=== PATIENT | male | born 1940 | race Two or more races ===

== ENCOUNTER 2017-12-03 11:46 | Inpatient (IN) | payer MEDICARE, BC ==
[~2017-12-03] VITALS: Ht 170.2 cm; Wt 76.7 kg
[2017-12-03] MEDS ORDERED: IV NS 0.9% 1,000 ML BAG IV ONE (12:30)
[2017-12-03 12:50] LABS: BASOPHILS # (AUTO) 0.4 /CMM (0.0-0.2); BASOPHILS % (AUTO) 2.1 % (0.0-2.0); EOSINOPHILS % (AUTO) 0.3 % (0.0-6.0); HEMATOCRIT 41 % (39-51); HEMOGLOBIN 14.4 g/dL (13.5-17.5); LYMPHOCYTES # (AUTO) 1.7 /CMM (0.8-4.8); LYMPHOCYTES % (AUTO) 9.9 % (20.0-44.0); MEAN CORPUSCULAR HEMOGLOBIN 33 PG (26.0-33.0); MEAN CORPUSCULAR HGB CONC 35 g/dl (31.0-36.0); MEAN CORPUSCULAR VOLUME 94 fL (80-96); MONOCYTES # (AUTO) 1.6 /CMM (0.1-1.30); MONOCYTES % (AUTO) 9.2 % (2.0-12.0); NEUTROPHILS # (AUTO) 13.3 /CMM (1.8-8.9); NEUTROPHILS % (AUTO) 78.5 % (43.0-81.0); PLATELET COUNT (AUTO) 355 /CMM (150-450); RDW COEFFICIENT OF VARIATION 13.1 (11.5-15.0); WHITE BLOOD COUNT (AUTO) 17.1 K/uL (4.3-11.0)
[2017-12-03 12:58] LABS: CALCIUM, SERUM 10.5 mg/dL (8.5-10.1); CARBON DIOXIDE 28 mmol/L (21-32); CHLORIDE 104 mmol/L (98-107); GLUCOSE 103 mg/dL (74-106); POTASSIUM 4.4 mmol/L (3.5-5.1); SODIUM SERUM 140 mmol/L (136-145); UREA NITROGEN, BLOOD 45 mg/dL (7-18)
[2017-12-03 13:10] LABS: ALANINE AMINOTRANSFERASE 26 U/L (12-78); ALBUMIN 3.8 g/dL (3.4-5.0); ALCOHOL, BLOOD < 3 mg/dL (0-0); ALKALINE PHOSPHATASE 59 U/L (46-116); ASPARTATE AMINOTRANSFERASE 39 U/L (15-37); BILIRUBIN,DIRECT 0.1 mg/dL (0.0-0.2); BILIRUBIN,TOTAL 0.5 mg/dL (0.2-1.0); TOTAL PROTEIN, SERUM 8.3 g/dL (6.4-8.2)
[2017-12-03] MEDS ORDERED: LORA0.5T PO (13:13)
[2017-12-03] MEDS ORDERED: BACI500P TP (13:13)
[2017-12-03] MEDS ORDERED: CHLO25TA13 PO (13:13)
[2017-12-03] MEDS ORDERED: METF500T6 PO (13:13)
[2017-12-03 13:14] LABS: ACETAMINOPHEN < 10 ug/ml (10-30); SALICYLATE 1.5 mg/dL (2.8-20.0)
[2017-12-03 13:16] LABS: LYMPHOCYTES % (MANUAL) 6 % (16-48); MONOCYTES % (MANUAL) 7 % (0-11.0); NEUTROPHILS % (MANUAL) 87 (42-76)
[2017-12-03 13:48] LABS: APPEARANCE,URINE Clear (CLEAR); BILIRUBIN,URINE SMALL (NEGATIVE); BLOOD, URINE Negative Ery/uL (NEGATIVE); COLOR,URINE Yellow (YELLOW); KETONES,URINE 15 (NEGATIVE); LEUKOCYTE ESTERASE ,URINE Negative (NEGATIVE); NITRITE, URINE Negative (NEGATIVE); PROTEIN,URINE 30 mg/dl (NEGATIVE); UGLUCOSE Negative (NEGATIVE)
[2017-12-03 14:07] LABS: RBC,URINE 0-2 /HPF (0-2)
[2017-12-03 14:08] LABS: BACTERIA,URINE None seen /HPF (None Seen); HYALINE CASTS, URINE Few /LPF (None Seen); SQUAMOUS EPITHELIAL CELL,UR Few /HPF (None Seen)
[2017-12-03] MEDS ORDERED: CEFTRIAXONE 1GM BAG (ER ONLY) 1 GM/50 ML PIGGYBACK IV ONE (14:30)
[2017-12-03] MEDS ORDERED: VANCOMYCIN 1 GM in IV D5W 250 ML IV ONE (14:30)
[2017-12-03] MEDS ORDERED: AZITHROMYCIN 500 MG in IV D5W 250 ML IV ONE (14:30)
[2017-12-03] MEDS ORDERED: CEFTRIAXONE 1GM BAG (ER ONLY) 50 ML IV ONE (14:31)
[2017-12-03] MEDS ORDERED: Z GUARD REMEDY 2 OZ OINT TP PRN (16:00)
[2017-12-03] MEDS ORDERED: MAGNESIUM HYDROXIDE 30 ML UDC PO PRN (16:00)
[2017-12-03] MEDS ORDERED: ZOLPIDEM TARTRATE 5 MG TABLET PO PRN (16:00)
[2017-12-03] MEDS ORDERED: ONDANSETRON HCL/PF 4 MG/2 ML VIAL IVP PRN (16:00)
[2017-12-03] MEDS ORDERED: ACETAMINOPHEN 325 MG TABLET PO PRN (16:00)
[2017-12-03] MEDS ORDERED: IV NS 0.9% 1,000 ML IV ONE (16:00)
[2017-12-03] MEDS ORDERED: MAG HYDROX/AL HYDROX/SIMETH 30 ML UDC PO PRN (16:00)
[2017-12-03] MEDS ORDERED: HYDROCODONE/APAP 5/325MG 1 EACH TABLET PO PRN (16:00)
[2017-12-03] MEDS ORDERED: FEE PK DOSING 1 MIN EA MC ONE (16:11)
[2017-12-03] MEDS: PIPERACILLIN /TAZOBACTAM 2.25 G in IV NS 0.9% 50 ML IV SCH (18:01)
[2017-12-03 20:00] VITALS: BP 149/75
[2017-12-03] MEDS: diphenhydrAMINE HCL 50 MG/ML VIAL IM PRN (21:56)
[2017-12-03] MEDS: LORAZEPAM INJ 2 MG/ML VIAL IM PRN (21:56)
[2017-12-03] MEDS ORDERED: chlorproMAZINE HCL 25 MG TABLET ONE (22:29)
[2017-12-03] MEDS: chlorproMAZINE HCL 25 MG TABLET PO SCH (22:33)
[2017-12-04] MEDS: PIPERACILLIN /TAZOBACTAM 2.25 G in IV NS 0.9% 50 ML IV SCH ×4 (00:56→18:05)
[2017-12-04] MEDS: VANCOMYCIN 500 MG in IV NS 0.9% 100 ML IV SCH ×2 (03:04→15:13)
[2017-12-04] MEDS: chlorproMAZINE HCL 25 MG TABLET PO SCH (04:19)
[2017-12-04 07:20] LABS: BASOPHILS % (AUTO) 0.2 % (0.0-2.0); EOSINOPHILS % (AUTO) 1.5 % (0.0-6.0); HEMATOCRIT 36 % (39-51); HEMOGLOBIN 12.4 g/dL (13.5-17.5); LYMPHOCYTES # (AUTO) 1.5 /CMM (0.8-4.8); LYMPHOCYTES % (AUTO) 14.2 % (20.0-44.0); MEAN CORPUSCULAR HEMOGLOBIN 33 PG (26.0-33.0); MEAN CORPUSCULAR HGB CONC 34 g/dl (31.0-36.0); MEAN CORPUSCULAR VOLUME 97 fL (80-96); MONOCYTES # (AUTO) 1.1 /CMM (0.1-1.30); MONOCYTES % (AUTO) 10.1 % (2.0-12.0); NEUTROPHILS # (AUTO) 7.9 /CMM (1.8-8.9); PLATELET COUNT (AUTO) 259 /CMM (150-450); RDW COEFFICIENT OF VARIATION 13.7 (11.5-15.0); RED BLOOD CELL COUNT(AUTO) 3.73 MIL/uL (4.5-6.0); WHITE BLOOD COUNT (AUTO) 10.7 K/uL (4.3-11.0)
[2017-12-04 07:27] LABS: CHOLESTEROL 159 mg/dL (<200); HDL CHOLESTEROL 30 mg/dL (40-60); LDL 109 mg/dL (0-99); TRIGLYCERIDES 115 mg/dL (30-150)
[2017-12-04 07:38] LABS: CALCIUM, SERUM 9.1 mg/dL (8.5-10.1); CARBON DIOXIDE 28 mmol/L (21-32); CHLORIDE 107 mmol/L (98-107); CREATININE 1.3 mg/dL (0.6-1.3); GLUCOSE 115 mg/dL (74-106); MAGNESIUM 1.9 mg/dL (1.8-2.4); PHOSPHORUS 3.7 mg/dL (2.5-4.9); POTASSIUM 3.5 mmol/L (3.5-5.1); SODIUM SERUM 142 mmol/L (136-145); UREA NITROGEN, BLOOD 32 mg/dL (7-18)
[2017-12-04 08:00] VITALS: BP 134/69
[2017-12-04] MEDS: BACITRACIN ZINC OINT PACKET 1 EA PACKET TP SCH (09:10)
[2017-12-04] MEDS: METFORMIN 500 MG TABLET PO SCH ×2 (10:56→17:54)
[2017-12-04] MEDS: diphenhydrAMINE HCL 50 MG/ML VIAL IM PRN (12:18)
[2017-12-04] MEDS: LORAZEPAM INJ 2 MG/ML VIAL IM PRN (12:18)
[2017-12-04] MEDS: LORAZEPAM 0.5 MG TABLET PO SCH (15:12)
[2017-12-04] MEDS: ZIPRASIDONE MESYLATE 20 MG/VIAL VIAL IM SCH (18:55)
[2017-12-04 20:00] VITALS: BP 140/88
[2017-12-05] MEDS: PIPERACILLIN /TAZOBACTAM 2.25 G in IV NS 0.9% 50 ML IV SCH ×5 (00:22→23:45)
[2017-12-05] MEDS: VANCOMYCIN 500 MG in IV NS 0.9% 100 ML IV SCH ×2 (04:33→14:56)
[2017-12-05] MEDS: LORAZEPAM INJ 2 MG/ML VIAL IM PRN (05:33)
[2017-12-05] MEDS: diphenhydrAMINE HCL 50 MG/ML VIAL IM PRN (05:33)
[2017-12-05 06:28] LABS: BASOPHILS % (AUTO) 0.3 % (0.0-2.0); HEMATOCRIT 38 % (39-51); HEMOGLOBIN 12.8 g/dL (13.5-17.5); LYMPHOCYTES % (AUTO) 11.2 % (20.0-44.0); MEAN CORPUSCULAR HEMOGLOBIN 33 PG (26.0-33.0); MEAN CORPUSCULAR HGB CONC 34 g/dl (31.0-36.0); MEAN CORPUSCULAR VOLUME 97 fL (80-96); MONOCYTES # (AUTO) 0.7 /CMM (0.1-1.30); MONOCYTES % (AUTO) 8.2 % (2.0-12.0); NEUTROPHILS # (AUTO) 6.8 /CMM (1.8-8.9); NEUTROPHILS % (AUTO) 78.3 % (43.0-81.0); PLATELET COUNT (AUTO) 282 /CMM (150-450); RDW COEFFICIENT OF VARIATION 13.4 (11.5-15.0); RED BLOOD CELL COUNT(AUTO) 3.93 MIL/uL (4.5-6.0); WHITE BLOOD COUNT (AUTO) 8.6 K/uL (4.3-11.0)
[2017-12-05 07:05] LABS: CALCIUM, SERUM 8.8 mg/dL (8.5-10.1); CARBON DIOXIDE 29 mmol/L (21-32); CHLORIDE 105 mmol/L (98-107); CREATININE 1.3 mg/dL (0.6-1.3); GLUCOSE 146 mg/dL (74-106); POTASSIUM 3.5 mmol/L (3.5-5.1); SODIUM SERUM 140 mmol/L (136-145); UREA NITROGEN, BLOOD 23 mg/dL (7-18)
[2017-12-05] MEDS: METFORMIN 500 MG TABLET PO SCH ×2 (08:24→17:06)
[2017-12-05] MEDS: BACITRACIN ZINC OINT PACKET 1 EA PACKET TP SCH (08:24)
[2017-12-05] MEDS: ZIPRASIDONE MESYLATE 20 MG/VIAL VIAL IM SCH ×2 (09:30→17:06)
[2017-12-05] MEDS ORDERED: IV NS 0.9% 1,000 ML BAG IV PRN (10:00)
[2017-12-05] MEDS: IV NS 0.9% 1,000 ML IV PRN (12:13)
[2017-12-05] MEDS: LACTOBACILLUS RHAMNOSUS GG 1 EACH CAP.SPRINK PO SCH (17:06)
[2017-12-05 20:00] VITALS: BP 153/83
[2017-12-06] MEDS ORDERED: VANCOMYCIN 500 MG VIAL ONE (02:58)
[2017-12-06] MEDS: VANCOMYCIN 0.75 GM in IV D5W 250 ML IV SCH ×2 (03:05→15:18)
[2017-12-06] MEDS: IV NS 0.9% 1,000 ML IV PRN ×2 (05:32→16:32)
[2017-12-06] MEDS: PIPERACILLIN /TAZOBACTAM 2.25 G in IV NS 0.9% 50 ML IV SCH ×4 (05:32→23:39)
[2017-12-06 07:08] LABS: BASOPHILS % (AUTO) 0.2 % (0.0-2.0); EOSINOPHILS % (AUTO) 1.5 % (0.0-6.0); HEMATOCRIT 38 % (39-51); HEMOGLOBIN 13.3 g/dL (13.5-17.5); LYMPHOCYTES # (AUTO) 0.9 /CMM (0.8-4.8); LYMPHOCYTES % (AUTO) 10.3 % (20.0-44.0); MEAN CORPUSCULAR HEMOGLOBIN 33 PG (26.0-33.0); MEAN CORPUSCULAR HGB CONC 35 g/dl (31.0-36.0); MEAN CORPUSCULAR VOLUME 96 fL (80-96); MONOCYTES # (AUTO) 0.7 /CMM (0.1-1.30); NEUTROPHILS # (AUTO) 7.3 /CMM (1.8-8.9); PLATELET COUNT (AUTO) 269 /CMM (150-450); RDW COEFFICIENT OF VARIATION 13.6 (11.5-15.0); RED BLOOD CELL COUNT(AUTO) 3.99 MIL/uL (4.5-6.0); WHITE BLOOD COUNT (AUTO) 9.1 K/uL (4.3-11.0)
[2017-12-06 07:22] LABS: CALCIUM, SERUM 8.4 mg/dL (8.5-10.1); CARBON DIOXIDE 24 mmol/L (21-32); CHLORIDE 107 mmol/L (98-107); GLUCOSE 145 mg/dL (74-106); POTASSIUM 3.5 mmol/L (3.5-5.1); SODIUM SERUM 140 mmol/L (136-145); UREA NITROGEN, BLOOD 19 mg/dL (7-18)
[2017-12-06 08:00] VITALS: BP_SYST 120; BP_SYST 189; BP_DIAS 63; BP_DIAS 92
[2017-12-06 09:00] VITALS: BP 120/63
[2017-12-06] MEDS: LACTOBACILLUS RHAMNOSUS GG 1 EACH CAP.SPRINK PO SCH ×2 (09:00→16:31)
[2017-12-06] MEDS: ZIPRASIDONE 20 MG CAPSULE PO SCH ×2 (09:00→16:31)
[2017-12-06] MEDS: METFORMIN 500 MG TABLET PO SCH ×2 (09:00→16:31)
[2017-12-06] MEDS ORDERED: ZIPRASIDONE MESYLATE 20 MG/VIAL VIAL IM PRN (09:00)
[2017-12-06] MEDS: BACITRACIN ZINC OINT PACKET 1 EA PACKET TP SCH (09:03)
[2017-12-06 16:00] VITALS: BP 143/69
[2017-12-06] MEDS: LORAZEPAM INJ 2 MG/ML VIAL IM PRN (18:25)
[2017-12-06 20:00] VITALS: BP 116/62
[2017-12-07] MEDS: VANCOMYCIN 0.75 GM in IV D5W 250 ML IV SCH (02:04)
[2017-12-07] MEDS: PIPERACILLIN /TAZOBACTAM 2.25 G in IV NS 0.9% 50 ML IV SCH (05:00)
[2017-12-07] MEDS: IV NS 0.9% 1,000 ML IV PRN (05:01)
[2017-12-07 07:11] LABS: CALCIUM, SERUM 8.5 mg/dL (8.5-10.1); CARBON DIOXIDE 24 mmol/L (21-32); CHLORIDE 106 mmol/L (98-107); CREATININE 1.1 mg/dL (0.6-1.3); GLUCOSE 143 mg/dL (74-106); POTASSIUM 3.4 mmol/L (3.5-5.1); SODIUM SERUM 139 mmol/L (136-145); UREA NITROGEN, BLOOD 17 mg/dL (7-18)
[2017-12-07 08:00] VITALS: BP 146/66
[2017-12-07] MEDS: LACTOBACILLUS RHAMNOSUS GG 1 EACH CAP.SPRINK PO SCH ×2 (08:21→16:25)
[2017-12-07] MEDS: ZIPRASIDONE 20 MG CAPSULE PO SCH ×2 (08:21→16:25)
[2017-12-07] MEDS: METFORMIN 500 MG TABLET PO SCH ×2 (08:21→16:25)
[2017-12-07] MEDS: BACITRACIN ZINC OINT PACKET 1 EA PACKET TP SCH (08:22)
[2017-12-07] MEDS ORDERED: POTASSIUM CHLORIDE 20 MEQ TAB.PRT.SR PO SCH (09:30)
[2017-12-07 16:00] VITALS: BP 139/68
[2017-12-07] MEDS: LORAZEPAM 0.5 MG TABLET PO SCH (16:25)
== END 2017-12-07 16:30 | DRG 871 ==
LOC: ER 11:47 → MED 15:45 → TELE 12-04 00:01 → MED 12-05 10:09
PROVIDERS: ADMIT Family Medicine; ATTEND Family Medicine
DX: A41.9 Sepsis, unspecified organism (principal); N17.0 Acute kidney failure with tubular necrosis; J69.0 Pneumonitis due to inhalation of food and vomit; G93.41 Metabolic encephalopathy; E87.2 Acidosis; N39.0 Urinary tract infection, site not specified; F03.91 Unspecified dementia, unspecified severity, with behavioral disturbance; F29 Unspecified psychosis not due to a substance or known physiological condition; E11.22 Type 2 diabetes mellitus with diabetic chronic kidney disease; I12.9 Hypertensive chronic kidney disease with stage 1 through stage 4 chronic kidney disease, or unspecified chronic kidney disease; N18.9 Chronic kidney disease, unspecified; E83.52 Hypercalcemia; E86.9 Volume depletion, unspecified; Z79.84 Long term (current) use of oral hypoglycemic drugs; E86.0 Dehydration; R65.20 Severe sepsis without septic shock
CPT/HCPCS: 36415; 71045-TC; 80048-TC; 80061-TC; 80076-TC; 80164-TC; 80202-TC; 80305; 81000-TC; 82962-TC; 83605-TC; 83735-TC; 84100-TC; 85025-TC; 87040-TC; 87081-TC; 87086-TC; 92611-TC; A4216; A4606; G0480; J0456; J0696; J1200; J2060; J2543; J3370; J3486; J7030; J7050; J7060; Q0161; Z7610

== ENCOUNTER 2017-12-07 17:35 | Inpatient (IN) | payer MEDICARE, BC ==
[~2017-12-07] VITALS: Ht 172.7 cm; Wt 73.5 kg
[~2017-12-07 17:35] MED LIST: BACI500P TP; CHLO25TA13 PO; LORA0.5T PO; METF500T6 PO
[2017-12-07] MEDS ORDERED: ZOLPIDEM TARTRATE 5 MG TABLET PO PRN (18:00)
[2017-12-07] MEDS ORDERED: MAGNESIUM HYDROXIDE 30 ML UDC PO PRN (18:00)
[2017-12-07] MEDS ORDERED: MAG HYDROX/AL HYDROX/SIMETH 30 ML UDC PO PRN (18:00)
[2017-12-07] MEDS ORDERED: ACETAMINOPHEN 325 MG TABLET PO PRN (18:00)
[2017-12-07 18:09] VITALS: BP 147/78
[2017-12-07 20:36] VITALS: BP 160/90
[2017-12-08 07:57] LABS: ALANINE AMINOTRANSFERASE 33 U/L (12-78); ALBUMIN 3.3 g/dL (3.4-5.0); ALKALINE PHOSPHATASE 49 U/L (46-116); ASPARTATE AMINOTRANSFERASE 34 U/L (15-37); BILIRUBIN,TOTAL 0.6 mg/dL (0.2-1.0); CALCIUM, SERUM 8.6 mg/dL (8.5-10.1); CARBON DIOXIDE 26 mmol/L (21-32); CHLORIDE 105 mmol/L (98-107); GLUCOSE 143 mg/dL (74-106); POTASSIUM 3.6 mmol/L (3.5-5.1); SODIUM SERUM 138 mmol/L (136-145); TOTAL PROTEIN, SERUM 7.5 g/dL (6.4-8.2); UREA NITROGEN, BLOOD 19 mg/dL (7-18)
[2017-12-08 08:00] VITALS: BP 140/71
[2017-12-08 08:09] LABS: CHOLESTEROL 151 mg/dL (<200); HDL CHOLESTEROL 29 mg/dL (40-60); LDL 107 mg/dL (0-99); TRIGLYCERIDES 137 mg/dL (30-150)
[2017-12-08] MEDS: METFORMIN 500 MG TABLET PO SCH ×2 (08:57→16:56)
[2017-12-08] MEDS ORDERED: TEMAZEPAM 7.5 MG CAPSULE PO PRN (15:30)
[2017-12-08 16:00] VITALS: BP 129/70
[2017-12-08] MEDS: ZIPRASIDONE 20 MG CAPSULE PO SCH (16:56)
[2017-12-08 20:38] VITALS: BP 155/89
[2017-12-08 20:52] VITALS: BP 165/89
[2017-12-09 08:00] VITALS: BP 114/73
[2017-12-09] MEDS: LORAZEPAM 0.5 MG TABLET PO SCH (08:17)
[2017-12-09] MEDS: ZIPRASIDONE 20 MG CAPSULE PO SCH ×2 (08:17→17:00)
[2017-12-09] MEDS: METFORMIN 500 MG TABLET PO SCH ×2 (08:17→17:00)
[2017-12-09 15:50] VITALS: BP 170/69
[2017-12-09 16:00] VITALS: BP 185/91
[2017-12-09 16:27] VITALS: BP 170/69
[2017-12-09] MEDS ORDERED: hydrALAZINE HCL 10 MG TABLET PO PRN (17:30)
[2017-12-09 20:17] VITALS: BP 168/72
[2017-12-09] MEDS: ATORVASTATIN 10 MG TABLET PO SCH (21:39)
[2017-12-09] MEDS ORDERED: TEMAZEPAM 7.5 MG CAPSULE PO SCH (22:00)
[2017-12-10] VITALS: BP 156/82
[2017-12-10] MEDS: LORAZEPAM 0.5 MG TABLET PO PRN ×2 (02:35→13:25)
[2017-12-10 08:00] VITALS: BP 132/72
[2017-12-10] MEDS: METFORMIN 500 MG TABLET PO SCH ×2 (08:40→17:04)
[2017-12-10] MEDS: ZIPRASIDONE 20 MG CAPSULE PO SCH ×2 (08:40→16:09)
[2017-12-10] MEDS: LOSARTAN POTASSIUM 50 MG TABLET PO SCH (08:44)
[2017-12-10 16:00] VITALS: BP 143/62
[2017-12-10 19:57] VITALS: BP 131/47
[2017-12-10 20:00] VITALS: BP 131/87
[2017-12-10] MEDS: TEMAZEPAM 7.5 MG CAPSULE PO PRN (21:26)
[2017-12-10] MEDS: ATORVASTATIN 10 MG TABLET PO SCH (21:26)
[2017-12-11 08:00] VITALS: BP 167/79
[2017-12-11] MEDS: METFORMIN 500 MG TABLET PO SCH ×2 (08:51→18:00)
[2017-12-11] MEDS: ZIPRASIDONE 20 MG CAPSULE PO SCH ×2 (08:51→17:07)
[2017-12-11] MEDS: LORAZEPAM 0.5 MG TABLET PO SCH (08:51)
[2017-12-11] MEDS: LOSARTAN POTASSIUM 50 MG TABLET PO SCH (08:51)
[2017-12-11 16:09] VITALS: BP 142/63
[2017-12-11 20:00] VITALS: BP 144/83
[2017-12-11] MEDS: DOXEPIN HCL (25 MG) 25 MG CAPSULE PO SCH (22:00)
[2017-12-11] MEDS: ATORVASTATIN 10 MG TABLET PO SCH (22:28)
[2017-12-11] MEDS: TEMAZEPAM 7.5 MG CAPSULE PO PRN (22:33)
[2017-12-12 08:00] VITALS: BP 130/96
[2017-12-12] MEDS: ZIPRASIDONE 20 MG CAPSULE PO SCH ×2 (08:52→17:37)
[2017-12-12] MEDS: LOSARTAN POTASSIUM 50 MG TABLET PO SCH (08:52)
[2017-12-12] MEDS: METFORMIN 500 MG TABLET PO SCH ×2 (08:52→17:37)
[2017-12-12 16:37] VITALS: BP 141/64
[2017-12-12 17:29] LABS: BASOPHILS % (AUTO) 0.3 % (0.0-2.0); HEMATOCRIT 41 % (39-51); HEMOGLOBIN 14.1 g/dL (13.5-17.5); LYMPHOCYTES # (AUTO) 1.1 /CMM (0.8-4.8); LYMPHOCYTES % (AUTO) 11.7 % (20.0-44.0); MEAN CORPUSCULAR HEMOGLOBIN 33 PG (26.0-33.0); MEAN CORPUSCULAR HGB CONC 34 g/dl (31.0-36.0); MEAN CORPUSCULAR VOLUME 95 fL (80-96); MONOCYTES # (AUTO) 0.6 /CMM (0.1-1.30); MONOCYTES % (AUTO) 6.6 % (2.0-12.0); NEUTROPHILS # (AUTO) 7.7 /CMM (1.8-8.9); NEUTROPHILS % (AUTO) 77.4 % (43.0-81.0); PLATELET COUNT (AUTO) 309 /CMM (150-450); RDW COEFFICIENT OF VARIATION 13.5 (11.5-15.0); RED BLOOD CELL COUNT(AUTO) 4.35 MIL/uL (4.5-6.0); WHITE BLOOD COUNT (AUTO) 9.8 K/uL (4.3-11.0)
[2017-12-12 20:00] VITALS: BP 141/92
[2017-12-12] MEDS: DOXEPIN HCL (25 MG) 25 MG CAPSULE PO SCH (22:40)
[2017-12-12] MEDS: TEMAZEPAM 15 MG CAPSULE PO PRN (22:40)
[2017-12-12] MEDS: ATORVASTATIN 10 MG TABLET PO SCH (22:40)
[2017-12-13 08:00] VITALS: BP 147/70
[2017-12-13] MEDS: METFORMIN 500 MG TABLET PO SCH ×2 (08:53→17:56)
[2017-12-13] MEDS: LOSARTAN POTASSIUM 50 MG TABLET PO SCH (08:53)
[2017-12-13] MEDS: ZIPRASIDONE 20 MG CAPSULE PO SCH ×2 (08:53→17:45)
[2017-12-13] MEDS: OXCARBAZEPINE 150 MG TABLET PO SCH ×2 (13:23→17:45)
[2017-12-13 16:00] VITALS: BP 153/64
[2017-12-13 20:03] VITALS: BP 145/74
[2017-12-13] MEDS: ATORVASTATIN 10 MG TABLET PO SCH (21:16)
[2017-12-13] MEDS: DOXEPIN HCL (25 MG) 25 MG CAPSULE PO SCH (21:16)
[2017-12-13] MEDS: TEMAZEPAM 15 MG CAPSULE PO PRN (22:38)
[2017-12-14 08:38] VITALS: BP 144/67
[2017-12-14] MEDS: METFORMIN 500 MG TABLET PO SCH ×2 (08:39→17:42)
[2017-12-14] MEDS: ZIPRASIDONE 20 MG CAPSULE PO SCH ×2 (08:40→17:42)
[2017-12-14] MEDS: LORAZEPAM 0.5 MG TABLET PO SCH (08:40)
[2017-12-14] MEDS: LOSARTAN POTASSIUM 50 MG TABLET PO SCH (08:40)
[2017-12-14] MEDS: OXCARBAZEPINE 150 MG TABLET PO SCH ×2 (08:40→17:42)
[2017-12-14 16:00] VITALS: BP 145/74
[2017-12-14 19:45] VITALS: BP 159/67
[2017-12-14] MEDS: ATORVASTATIN 10 MG TABLET PO SCH (21:35)
[2017-12-14] MEDS: DOXEPIN HCL (25 MG) 25 MG CAPSULE PO SCH (21:35)
[2017-12-14] MEDS: TEMAZEPAM 15 MG CAPSULE PO PRN (21:35)
[2017-12-14] MEDS ORDERED: Z GUARD REMEDY 2 OZ OINT TP PRN (22:30)
[2017-12-15 07:24] LABS: CALCIUM, SERUM 9.2 mg/dL (8.5-10.1); CARBON DIOXIDE 27 mmol/L (21-32); CHLORIDE 104 mmol/L (98-107); CREATININE 0.9 mg/dL (0.6-1.3); GLUCOSE 142 mg/dL (74-106); POTASSIUM 3.9 mmol/L (3.5-5.1); SODIUM SERUM 138 mmol/L (136-145); UREA NITROGEN, BLOOD 16 mg/dL (7-18)
[2017-12-15 07:32] LABS: BASOPHILS % (AUTO) 0.2 % (0.0-2.0); EOSINOPHILS % (AUTO) 3.4 % (0.0-6.0); HEMATOCRIT 35 % (39-51); HEMOGLOBIN 12.5 g/dL (13.5-17.5); LYMPHOCYTES % (AUTO) 11.2 % (20.0-44.0); MEAN CORPUSCULAR HEMOGLOBIN 34 PG (26.0-33.0); MEAN CORPUSCULAR HGB CONC 36 g/dl (31.0-36.0); MEAN CORPUSCULAR VOLUME 94 fL (80-96); MONOCYTES # (AUTO) 0.9 /CMM (0.1-1.30); MONOCYTES % (AUTO) 9.9 % (2.0-12.0); NEUTROPHILS # (AUTO) 7.1 /CMM (1.8-8.9); NEUTROPHILS % (AUTO) 75.3 % (43.0-81.0); PLATELET COUNT (AUTO) 241 /CMM (150-450); RDW COEFFICIENT OF VARIATION 13.4 (11.5-15.0); WHITE BLOOD COUNT (AUTO) 9.3 K/uL (4.3-11.0)
[2017-12-15 08:00] VITALS: BP 115/68
[2017-12-15] MEDS: LOSARTAN POTASSIUM 50 MG TABLET PO SCH (08:49)
[2017-12-15] MEDS: METFORMIN 500 MG TABLET PO SCH ×2 (08:49→17:03)
[2017-12-15] MEDS: OXCARBAZEPINE 150 MG TABLET PO SCH ×2 (08:49→17:03)
[2017-12-15] MEDS: ZIPRASIDONE 20 MG CAPSULE PO SCH ×3 (08:49→21:17)
[2017-12-15] MEDS: LORAZEPAM 0.5 MG TABLET PO PRN (13:12)
[2017-12-15 16:09] VITALS: BP 135/68
[2017-12-15 20:34] VITALS: BP 141/79
[2017-12-15] MEDS: ATORVASTATIN 10 MG TABLET PO SCH (21:17)
[2017-12-15] MEDS: DOXEPIN HCL (25 MG) 25 MG CAPSULE PO SCH (21:17)
[2017-12-16] MEDS: TEMAZEPAM 15 MG CAPSULE PO PRN ×2 (00:17→23:05)
[2017-12-16 08:00] VITALS: BP 153/76
[2017-12-16] MEDS: METFORMIN 500 MG TABLET PO SCH ×2 (08:32→18:03)
[2017-12-16] MEDS: LORAZEPAM 0.5 MG TABLET PO SCH (08:33)
[2017-12-16] MEDS: LOSARTAN POTASSIUM 50 MG TABLET PO SCH (08:33)
[2017-12-16] MEDS: OXCARBAZEPINE 150 MG TABLET PO SCH ×2 (08:33→18:03)
[2017-12-16] MEDS: ZIPRASIDONE 20 MG CAPSULE PO SCH ×2 (08:34→21:35)
[2017-12-16 16:00] VITALS: BP 134/64
[2017-12-16] MEDS: ATORVASTATIN 10 MG TABLET PO SCH (21:34)
[2017-12-16 21:38] VITALS: BP 159/75
[2017-12-16] MEDS: DOXEPIN HCL (25 MG) 25 MG CAPSULE PO SCH (21:40)
[2017-12-17 08:00] VITALS: BP 127/61
[2017-12-17] MEDS: LOSARTAN POTASSIUM 50 MG TABLET PO SCH (08:03)
[2017-12-17] MEDS: ZIPRASIDONE 20 MG CAPSULE PO SCH (08:03)
[2017-12-17] MEDS: METFORMIN 500 MG TABLET PO SCH (08:04)
[2017-12-17] MEDS: OXCARBAZEPINE 150 MG TABLET PO SCH (08:04)
[2017-12-17 08:11] VITALS: BP 127/61
== END 2017-12-17 14:55 | disposition home or self-care (01) | DRG 885 ==
LOC: GPS 17:35
PROVIDERS: ADMIT Psychiatry & Neurology Psychiatry; ATTEND Nurse Practitioner Acute Care
DX: F29 Unspecified psychosis not due to a substance or known physiological condition (principal); F02.81 Dementia in other diseases classified elsewhere, unspecified severity, with behavioral disturbance; N17.0 Acute kidney failure with tubular necrosis; A41.9 Sepsis, unspecified organism; J18.9 Pneumonia, unspecified organism; N39.0 Urinary tract infection, site not specified; F23 Brief psychotic disorder; I10 Essential (primary) hypertension; E11.9 Type 2 diabetes mellitus without complications; E78.5 Hyperlipidemia, unspecified; E83.52 Hypercalcemia; F41.9 Anxiety disorder, unspecified; Z79.84 Long term (current) use of oral hypoglycemic drugs; G31.9 Degenerative disease of nervous system, unspecified; G30.9 Alzheimer's disease, unspecified
CPT/HCPCS: 36415; 80048-TC; 80053-TC; 80061-TC; 85025-TC; 87081-TC; Z7610